=== PATIENT | female | born 1955 | race Caucasian/White ===

== ENCOUNTER 2017-11-17 18:20 | Inpatient (IN) | payer OTHER ==
--- NOTE | 2017-11-17 18:28 | EDPHY ---
H & P Time Seen by Provider: 11/17/17 18:22 HPI/ROS: Chief complaint. Migraine headache, abdominal pain HPI. A 62-year-old female here by EMS with above complaints. Patient tells me that she has daily migraines for many years. Her headache is typical other than maybe worse than usual. No recent head injury or fever. She also has had nausea vomiting for 5 days. Tells me no abdominal pain. She has a colostomy that seems to be working. She yesterday had 5-10 seconds of fluttering in her chest. Then this afternoon 10 min of continuous stabbing type pain that has now resolved. It was not worse with breathing or exertion or position. It occurred while she was lying in bed. She has had a very stressful week and is feeling anxious and increased stress. She feels like she has been short of breath all week as well. ROS Constitutional. no fever/chills, no weakness Eyes. no problems with vision ENT. no sore throat, no nasal drainage Cardiovascular. Chest fluttering and stabbing pain Respiratory. Shortness of breath Abdominal. No abdominal pain but nausea and vomiting . no problems urinating MS. no calf pain/swelling, no neck/back pain, no joint pain Skin. no rash Lymph. no swollen glands Neuro. Typical headache Past Medical/Surgical History: Perforated ulcer, migraines, ovarian surgery, bowel resection, colostomy Social History: , daily smoker, no alcohol Smoking Status: Current some day smoker Physical Exam: General Appearance: Alert, anxious well-developed female mild distress vital signs are stable Eyes: Pupils equal and round no pallor or injection. ENT, Mouth: Mucous membranes are moist. Respiratory: There are no retractions, lungs are clear to auscultation. Cardiovascular: Regular rate and rhythm. Gastrointestinal: Abdomen is soft and nontender, no masses, bowel sounds normal. Neurological: Awake and alert, sensory and motor exams grossly normal. Skin: Warm and dry, no rashes. Musculoskeletal: Neck is supple nontender. Extremities symmetrical, full range of motion. Psychiatric: Patient is oriented X 3, there is no agitation. Constitutional: Initial Vital Signs Temperature (C) 36.6 C 11/17/17 18:23 Heart Rate 88 11/17/17 18:23 Respiratory Rate 18 11/17/17 18:23 Blood Pressure 137/74 H 11/17/17 18:23 O2 Sat (%) 91 L 11/17/17 18:23 O2 Delivery Mode Nasal Cannula O2 (L/minute) 2 Allergies/Adverse Reactions: alendronate sodium [From Fosamax] Allergy (Severe, Verified 06/18/14 03:45) Penicillins Allergy (Verified 06/18/14 03:45) UPSET STOMACH Home Medications: Medication Instructions Recorded Acet/Caffeine/Buta Fioricet 1 tab PO Q6 PRN 08/26/13 [Fioricet (*)] Amitriptyline HCl [Elavil 50 mg 150 mg PO HS 08/26/13 (*)] FLUoxetine [Prozac 20 MG (*)] 1 cap PO DAILY 08/26/13 Prochlorperazine Maleate 2 tab PO DAILY PRN 08/26/13 [Compazine 5mg (*)] Topiramate [Topamax 100MG (*)] 100 mg PO BID 08/26/13 ZOLMItriptan [Zolmitriptan Odt] 5 mg PO BID PRN 08/28/13 Herbals/Supplements -Info Only 1 ea PO DAILY 06/05/14 Nadolol [Corgard] 40 mg PO DAILY 06/05/14 Omeprazole [Prilosec] 40 mg PO BID 06/05/14 Docusate Sodium [Colace 100 MG (*)] 100 mg PO BID #30 cap 06/13/14 Hydrocodone/APAP 5/325 [Industry 2 tab PO Q4 PRN #30 tab 06/13/14 5/325 (*)] Magnesium Hydroxide [Milk of 30 ml PO DAILY PRN #30 ml 06/13/14 Magnesia (*)] Docusate Sodium [Colace 100 MG (*)] 100 mg PO BID #60 cap 06/24/14 Hydrocodone/APAP 5/325 [Industry 2 tab PO Q4 PRN #90 tab 06/24/14 5/325 (*)] Magnesium Hydroxide [Milk of 30 ml PO DAILY #30 ml 06/24/14 Magnesia (*)] Moxifloxacin [Avelox 400 mg (*)] 400 mg PO DAILY #7 tab 06/24/14 Medical Decision Making - Diagnostics EKG Interpretation: EKG interpreted by me shows normal sinus rhythm normal interval and axis. There is left posterior fascicular block and right bundle branch block. No significant ST elevation. No arrhythmia. The rate is 69. Not changed from previous EKGs Imaging Results: Imaging Impressions Abdomen CT 11/17/17 18:59 Impression: 1. Postoperative changes in the pelvis with no evidence for associated abscess. There is mild bowel dilatation noted. 2. See above report for additional findings. Results called and discussed with EMMA DAVIS M.D. on 11/17/2017 at 20:04 Chest X-Ray 11/17/17 18:59 Impression: Negative frontal chest radiograph. CT abdomen and pelvis shows no obvious trauma or bowel obstruction Chest x-ray interpreted by me is normal Procedures: IV normal saline. Zofran for nausea ED Course/Re-evaluation: Patient is found to have significant hypokalemia. Her labs were repeated in the potassium is 2.3. She is given oral IV potassium replacement in the emergency department and 1 g magnesium sulfate She also complains of migraine headache. Reglan is contraindicated with Prozac. She is given IV Toradol and Benadryl for her headache. I consulted and discussed the case with Dr. Garza, hospitalist, who agrees to the admission Differential Diagnosis: I considered small-bowel obstruction, appendicitis, cholecystitis, diverticulitis. I considered acute coronary syndrome. Patient has significant electrolyte abnormality of hypokalemia Patient has an elevated lipase indicating pancreatitis - Data Points Laboratory Results: Laboratory Results 11/17/17 19:40 11/17/17 19:40 11/17/17 11/17/17 11/17/17 19:40 19:40 18:50 WBC 8.58 10^3/uL 10^3/uL REJ (3.80-9.50) RBC 4.82 10^6/uL 10^6/uL REJ (4.18-5.33) Hgb 15.2 g/dL g/dL REJ (12.6-16.3) Hct 42.9 % % REJ (38.0-47.0) MCV 89.0 fL fL REJ (81.5-99.8) MCH 31.5 pg pg REJ (27.9-34.1) MCHC 35.4 g/dL g/dL REJ (32.4-36.7) RDW 11.8 % % REJ (11.5-15.2) Plt Count 199 10^3/uL 10^3/uL REJ (150-400) MPV 8.9 fL fL REJ (8.7-11.7) Neut % (Auto) 68.9 % % REJ (39.3-74.2) Lymph % (Auto) 20.5 % % REJ (15.0-45.0) Jones % (Auto) 9.3 % % REJ (4.5-13.0) Eos % (Auto) 0.6 % % REJ (0.6-7.6) Baso % (Auto) 0.5 % % REJ (0.3-1.7) Nucleat RBC Rel Count 0.0 % % REJ (0.0-0.2) Absolute Neuts (auto) 5.91 10^3/uL 10^3/uL REJ (1.70-6.50) Absolute Lymphs (auto) 1.76 10^3/uL 10^3/uL REJ (1.00-3.00) Absolute Monos (auto) 0.80 10^3/uL 10^3/uL REJ (0.30-0.80) Absolute Eos (auto) 0.05 10^3/uL 10^3/uL REJ (0.03-0.40) Absolute Basos (auto) 0.04 10^3/uL 10^3/uL REJ (0.02-0.10) Absolute Nucleated RBC 0.00 10^3/uL 10^3/uL REJ (0-0.01) Immature Gran % 0.2 % % REJ (0.0-1.1) Immature Gran # 0.02 10^3/uL 10^3/uL REJ (0.00-0.10) Sodium 131 mEq/L L mEq/L (135-145) Potassium 2.3 mEq/L L* mEq/L (3.3-5.0) Chloride 96 mEq/L L mEq/L (97-110) Carbon Dioxide 29 mEq/l mEq/l (22-31) Anion Gap 6 mEq/L L mEq/L (8-16) BUN 31 mg/dL H mg/dL (7-23) Creatinine 0.8 mg/dL mg/dL (0.6-1.0) Estimated GFR > 60 Glucose 101 mg/dL H mg/dL (70-100) Calcium 8.2 mg/dL L mg/dL (8.5-10.4) Troponin I Lipase 11/17/17 18:50 WBC RBC Hgb Hct MCV MCH MCHC RDW Plt Count MPV Neut % (Auto) Lymph % (Auto) Jones % (Auto) Eos % (Auto) Baso % (Auto) Nucleat RBC Rel Count Absolute Neuts (auto) Absolute Lymphs (auto) Absolute Monos (auto) Absolute Eos (auto) Absolute Basos (auto) Absolute Nucleated RBC Immature Gran % Immature Gran # Sodium 132 mEq/L L mEq/L (135-145) Potassium 2.7 mEq/L L* mEq/L (3.3-5.0) Chloride 94 mEq/L L mEq/L (97-110) Carbon Dioxide 28 mEq/l mEq/l (22-31) Anion Gap 10 mEq/L mEq/L (8-16) BUN 29 mg/dL H mg/dL (7-23) Creatinine 0.8 mg/dL mg/dL (0.6-1.0) Estimated GFR > 60 Glucose 117 mg/dL H mg/dL (70-100) Calcium 8.7 mg/dL mg/dL (8.5-10.4) Troponin I < 0.012 ng/mL ng/mL (0.000-0.034) Lipase 680 IU/L H IU/L (23-300) Medications Given: Magnesium Sulfate/Dextrose (Magnesium Sulf 1 Gm (Premix)) 100 mls @ 100 mls/hr IV EDNOW ONE Stop: 11/17/17 21:14 Last Admin: 11/17/17 20:35 Dose: 100 mls Discontinued Medications Diphenhydramine HCl (Benadryl Injection) 12.5 mg IVP EDNOW ONE Stop: 11/17/17 20:18 Last Admin: 11/17/17 20:35 Dose: 12.5 mg Sodium Chloride (Ns) 1,000 mls @ 0 mls/hr IV EDNOW ONE; Wide Open PRN Reason: Protocol Stop: 11/17/17 18:59 Last Admin: 11/17/17 19:18 Dose: 1,000 mls Ketorolac Tromethamine (Toradol) 15 mg IVP EDNOW ONE Stop: 11/17/17 20:18 Last Admin: 11/17/17 20:34 Dose: 15 mg Lorazepam (Ativan) 1 mg PO EDNOW ONE Stop: 11/17/17 19:01 Last Admin: 11/17/17 20:20 Dose: Not Given Lorazepam (Ativan Injection) 0.5 mg IVP EDNOW ONE Stop: 11/17/17 19:20 Last Admin: 11/17/17 19:20 Dose: 0.5 mg Ondansetron HCl (Zofran) 4 mg IVP EDNOW ONE Stop: 11/17/17 18:59 Last Admin: 11/17/17 19:10 Dose: 4 mg Potassium Chloride (Klor Packets) 20 meq PO EDNOW ONE Stop: 11/17/17 20:15 Last Admin: 11/17/17 20:34 Dose: 20 meq Departure - Departure Disposition: [facility] Inpatient Acute Clinical Impression: Hypokalemia Pancreatitis Qualifiers: Chronicity: acute Pancreatitis type: unspecified pancreatitis type Acute pancreatitis complication: unspecified Qualified Code(s): K85.90 - Acute pancreatitis without necrosis or infection, unspecified Condition: Fair Referrals: Patient,NotPresent [Unknown] - As per Instructions
--- NOTE | 2017-11-17 18:40 | CPEKG ---
Heart Rate: 69 RR Interval: 870 P-R Interval: 184 QRSD Interval: 138 QT Interval: 488 QTC Interval: 523 P [place]: 64 QRS [place]: 85 T Wave [place]: 47 EKG Severity - ABNORMAL ECG - EKG Impression: SINUS RHYTHM EKG Impression: RBBB AND LPFB Electronically Signed By: Norman Rachel 17-Nov-2017 18:44:12
[2017-11-17] MEDS ORDERED: ONDANSETRON 4 MG/2 ML VIAL IVP ONE (18:58)
[2017-11-17] MEDS ORDERED: NS 1,000 ML IV ONE (18:58)
[2017-11-17] MEDS ORDERED: LORazepam 1 MG TAB PO ONE (19:00)
[2017-11-17] MEDS ORDERED: LORazepam 2 MG/ML INJ ONE (19:04)
[2017-11-17] MEDS ORDERED: IOPAMIDOL (ISOVUE-300) 100 ML BTL ONE (19:08)
[2017-11-17] MEDS ORDERED: LORazepam 2 MG/ML INJ IVP ONE (19:19)
[2017-11-17 19:49] LABS: PLATELET COUNT 199 10^3/uL (150-400)
[2017-11-17] MEDS ORDERED: POTASSIUM CL 20 MEQ PKT PO ONE (20:14)
[2017-11-17] MEDS ORDERED: MAGNESIUM SULF 1 GM/DEXTROSE 100 ML IV ONE (20:15)
[2017-11-17] MEDS ORDERED: KETOROLAC 30 MG/1 ML SDV IVP ONE (20:17)
[2017-11-17] MEDS ORDERED: ONDANSETRON 4 MG/2 ML VIAL IVP PRN (21:12)
[2017-11-17] MEDS ORDERED: ACETAMINOPHEN 325 MG TAB PO PRN (21:12)
[2017-11-17] MEDS ORDERED: ONDANSETRON DISINTEGRATING 4 MG TAB PO PRN (21:12)
[2017-11-17] MEDS ORDERED: NS W/ 20 KCl/L 1,000 ML IV SCH (21:15)
[2017-11-17] MEDS: POTASSIUM Cl (KCl) 20 MEQ in 1/2 NS 1,000 ML IV SCH ×2 (21:22→22:42)
[2017-11-17] MEDS ORDERED: ZOLMITRIPTAN 5 MG PO PRN (22:18)
[2017-11-17] MEDS ORDERED: TEARS/DEXTRAN 70/HYPROMELLOSE 15 ML OPHT.BTL EACHEYE PRN (22:18)
[2017-11-17] MEDS ORDERED: PROCHLORPERAZINE MALEATE 5 MG TAB PO PRN (22:18)
[2017-11-17] MEDS ORDERED: PROMETHAZINE HCL 25 MG/ML INJ IVP PRN (22:20)
[2017-11-17] MEDS ORDERED: PROTOCOL POTASSIUM 1 DOSE MISC PRN (22:22)
[2017-11-17] MEDS ORDERED: PROTOCOL MAGNESIUM 1 DOSE IV PRN (22:22)
[2017-11-17] MEDS: POTASSIUM Cl (KCl) 100 ML IV SCH ×2 (22:35→23:50)
[2017-11-17] MEDS: HYDROmorphONE/DILAUDID 1 MG/ML INJ IVP PRN (22:36)
--- NOTE | 2017-11-17 22:38 | PDGENHP ---
History and Physical History and Physical: CC: Nausea vomiting and headache HISTORY: This patient comes into the emergency room with a variety of symptoms better difficult to sort out in terms of their relationship and there time line. The major complaint seems to be ongoing headache and persistent vomiting though she does mention that she was worried about some chest pain that could be related to her heart. In terms of the chest pains she describes having onset today of some episodes that were very brief in duration of lasting seconds , a very sharp pain in the left anterior chest wall area. These were notably aggravated by any movement of the trunk or shoulder. There were not associated with any cardiac or pulmonary symptoms otherwise. There is no injury. The symptoms have spontaneously resolved at this time. There has been no coughing, no injury, no fever symptoms. In terms of nausea vomiting she says that around a week and half ago she got a letter from her sister stating that her sister was going to [place] her. This is caused quite a great deal of stress for her and she does not tolerate stress well. She has had ongoing migraine headache for at least 9 or 10 days now, and has been vomiting, having quite a bit of difficulty keeping down any fluids or food. She feels like she has lost some weight. There is some mild orthostatic symptoms. She says she does not have any more abdominal pain than her usual abdominal pain. She does have some chronic abdominal issues related to a history of perforated ulcer and subsequent anastomotic leak and reoperations. She has an colostomy in place and says this has been working just fine. There has been no evidence of bleeding in her emesis or in her ostomy output. Again here she denies any fever. There are no acute neurologic symptoms. She has had trouble keeping down her usual medications which is making it hard for her to keep her symptoms controlled. She has been taking a lot of her Zomig for migraines and has run out of Zomig in the last couple of days. ROS: A comprehensive 10 system review revealed no other significant findings PAST MEDICAL HISTORY: Migraine headaches Chronic abdominal pain, self described irritable bowel syndrome Perforated ulcer after a series of upper GI bleeds, resulting in partial resection with subsequent anastomotic leak leading to a colostomy with a number of surgeries for all of this Appendectomy Endometriosis Focal pancreatic abnormality seen on imaging studies which was followed for question of possible mass but she has never been diagnosed with a cancer, and this appears to have either stabilized or resolved per the patient Bipolar disorder FAMILY MEDICAL HISTORY: No concerning abnormalities relative to the patient's current symptoms that she is aware of SOCIAL HISTORY: Quit smoking around 15 years ago Former alcohol drinker of significance has quit some years ago MEDICATIONS: The patients list has been reconciled by our clinical pharmacist in the EMR. I have reviewed the list and ordered appropriate medicines. PHYSICAL EXAMINATION: Vital Signs: All normal without fever Carbonation Tester: Sinus Examination: General: alert, oriented, good mentation, looks fairly uncomfortable due to headache and is lying on [facility] in position with an ice pack on her forehead Skin: skin turgor is noticeably decreased, otherwise warm, dry, good color, no rash, no jaundice HEENT: normal Neck: no mass or jvd Resps: relaxed Lungs: clear breath sounds Heart: regular, no murmur Abdomen: soft, nondistended, nontender, +BS, no mass; ostomy in left lower quadrant is in good condition and functioning well with normal appearing effluent Upper Extremities: normal Lower Extremities: no edema, warm No Bleeding or bruising Neurologic: normal speech/language, normal hvac designer, no focal weakness IV site: looks normal LABORATORY DATA: Normal CBC Chemistry panel with elevated BUN, and potassium of 2.3 and mild hyponatremia 131 RADIOLOGY STUDIES: CT scan of abdomen done with contrast in the ER tonight. I reviewed the images with Dr. Rd Birch of Radiology. There are extensive postsurgical changes from her multiple prior abdominal surgeries. Her ostomy is present with no noted abnormalities there. Her gallbladder is very hydropic but otherwise unremarkable. There are loops of bowel in the pelvis which are fluid filled and mildly distended but do not appear to indicate any kind of obstruction. No free fluid or free air, no other acute inflammatory changes or concerning findings 12 LEAD EKG: Done in the ER, my personal reading of the tracing: Sinus rhythm with right bundle-branch block and probably left posterior fascicular block. These changes have been noted on previous EKGs as well that I reviewed today ASSESSMENT: -acute hypokalemia and hypomagnesemia from GI losses -intractable nausea vomiting, possibly related to her ongoing migraine but at this time I think her dehydration and electrolyte abnormalities are likely also contributing causes -status migrainosus in a patient with long history of trouble some migraines -chest pains, resolved. These symptoms do not sound at all cardiac and at this time I do not think they warrant any further assessment as they resolved. They may be esophageal symptoms related to her intractable vomiting -acute dehydration due to her vomiting -prior history of multiple abdominal surgeries resulting in a colostomy, with partial gastrectomy with a prior episode of gastric perforation, all seem stable at this time based on symptoms examine CT -bipolar disorder, stable and treatment PLANS: * Inpatient admission to the hospital * Aggressive replacement of her potassium and magnesium at this time * IV hydration * Hopefully the hydration will help her headache and her nausea but will have p.r.n. Orders for nausea and pain medicines in addition to her usual medications at this time * If migraine persists may need to consider prednisone or other measures I have reviewed the patient's case in detail with Dr. Norman Rachel and Rd Birch I have reviewed the patient's past medical records as part of this assessment, including previous hospital admission records, also inpatient and outpatient laboratory data, EKGs
[2017-11-17] MEDS: TOPIRAMATE 100 MG TAB PO SCH (23:05)
--- NOTE | 2017-11-17 23:42 | PDMN ---
Medical Necessity Medical necessity: C/M review: Patient meets INPT criteria under M-370 Vomiting , M-185 Headaches; Acute and persistent - hypokalemia, hypomagnesemia from GI losses, intractable nausea, vomiting, status migrainosus, dehydration, chest pains - resolved, Na 132, 131, K2.7, 2.3, BUN 29, 31, mag 3.3, Ca 8.2, lipase 680 requiring aggressive IV Potassium and magnesium repletion, ongoing IV KCl 20 meq in NS infusion 125 ml/hr., frequeint doses IV Dilaudid, IV Phenergan, IV Zofran, electrolyte monitoring, comorbid history of multiple abdominal surgeries including colostomy, with partial gastrectomy with a prior gastric perforation, bipolar disorder, migraine headaches, chronic abdominal pain, self described irritable syndrome. MD anticipates > 2 MN LOS for ongoing med nec fro eval and TX of above.
[2017-11-18] MEDS: HYDROmorphONE/DILAUDID 1 MG/ML INJ IVP PRN ×3 (00:32→16:10)
[2017-11-18] MEDS: ZOLPIDEM TARTRATE 5 MG TAB PO PRN (01:11)
[2017-11-18] MEDS ORDERED: LORazepam 2 MG/ML INJ IVP PRN (04:26)
[2017-11-18] MEDS: ACET/CAFFEINE/BUTA FIORICET 1 EACH TAB PO PRN ×2 (05:36→20:33)
[2017-11-18] MEDS ORDERED: POTASSIUM CL 10 MEQ TAB PO ONE (07:57)
[2017-11-18] MEDS: GABAPENTIN 400 MG CAP PO SCH (08:40)
[2017-11-18] MEDS: TOPIRAMATE 100 MG TAB PO SCH ×2 (08:44→20:33)
[2017-11-18] MEDS: FLUoxetine 20 MG CAP PO SCH (08:44)
[2017-11-18] MEDS ORDERED: PANTOPRAZOLE SODIUM 40 MG VIAL IVP ONE (08:57)
[2017-11-18] MEDS ORDERED: NADOLOL 40 MG PO SCH (09:00)
[2017-11-18] MEDS: ENOXAPARIN 40 MG/0.4 ML SYR SC SCH (10:55)
[2017-11-18] MEDS: NADOLOL 20 MG TAB PO SCH (11:01)
--- NOTE | 2017-11-18 14:07 | ASMTCMCOM ---
CM Note CM Note Notes: Patient admitted via ED with c/o headache and multiple days of nausea and vomiting She has been diagnosed with pancreatitis. She is now on clear liquids. She will be changed to Med Surg status. Needs to be determined. CM to follow. Plan:TBD Date Signed: 11/18/2017 02:06 PM Electronically Signed By:Christen Taylor RN
--- NOTE | 2017-11-18 14:44 | HOSPPROG ---
Hospitalist Progress Note Assessment/Plan: -acute hypokalemia and hypomagnesemia from GI losses -intractable nausea vomiting, possibly related to her ongoing migraine but at this time I think her dehydration and electrolyte abnormalities are likely also contributing causes -status migrainosus in a patient with long history of trouble some migraines -chest pains, resolved. These symptoms do not sound at all cardiac and at this time I do not think they warrant any further assessment as they resolved. They may be esophageal symptoms related to her intractable vomiting -acute dehydration due to her vomiting -prior history of multiple abdominal surgeries resulting in a colostomy, with partial gastrectomy with a prior episode of gastric perforation, all seem stable at this time based on symptoms examine CT -bipolar disorder, stable and treatment PLANS: -schedule IV PPI -IV low dose Solu-Medrol -transfer out of the PCU -replace K -cont IV Hydration -change to inpatient -Lovenox for DVT proph Subjective: still with nause. minimal oral intake. +CHAMBERS Objective: Vital Signs Temp Pulse Resp BP Pulse Ox 36.5 C 86 16 115/62 97 11/18/17 07:43 11/18/17 07:43 11/18/17 07:43 11/18/17 07:43 11/18/17 07:43 Laboratory Results 11/18/17 03:42 11/17/17 11/18/17 11/19/17 05:59 05:59 05:59 Intake Total 1600 Balance 1600 - Physical Exam Constitutional: no apparent distress, not in pain Eyes: PERRL, EOMI Ears, Nose, Mouth, Throat: moist mucous membranes, hearing normal Cardiovascular: regular rate and rhythym, No edema Respiratory: no respiratory distress, no rales or rhonchi, clear to auscultation Gastrointestinal: normoactive bowel sounds, No tenderness Skin: warm Musculoskeletal: full muscle strength Neurologic: AAOx3 Psychiatric: interacting appropriately, not anxious, not encephalopathic Lymph, Heme, Immunologic: No petechiae ICD10 Worksheet Patient Problems: Problems Problem Status Onset Hypokalemia Acute Pancreatitis Acute Rectal bleeding Acute
[2017-11-18] MEDS: methylPREDNISolone SOD SUCC 40 MG/ML VIAL IVP SCH (15:55)
[2017-11-18] MEDS: PANTOPRAZOLE SODIUM 40 MG VIAL IVP SCH (20:33)
[2017-11-19] MEDS: HYDROmorphONE/DILAUDID 1 MG/ML INJ IVP PRN ×2 (01:22→08:44)
[2017-11-19 04:33] LABS: PLATELET COUNT 178 10^3/uL (150-400)
[2017-11-19] MEDS ORDERED: POTASSIUM CL 20 MEQ TAB PO ONE (07:18)
[2017-11-19] MEDS: ACET/CAFFEINE/BUTA FIORICET 1 EACH TAB PO PRN ×2 (09:30→18:15)
[2017-11-19] MEDS: methylPREDNISolone SOD SUCC 40 MG/ML VIAL IVP SCH (09:41)
[2017-11-19] MEDS: PANTOPRAZOLE SODIUM 40 MG VIAL IVP SCH ×2 (09:44→22:59)
[2017-11-19] MEDS: GABAPENTIN 400 MG CAP PO SCH (09:45)
[2017-11-19] MEDS: ENOXAPARIN 40 MG/0.4 ML SYR SC SCH (09:45)
[2017-11-19] MEDS: FLUoxetine 20 MG CAP PO SCH (09:45)
[2017-11-19] MEDS: TOPIRAMATE 100 MG TAB PO SCH ×2 (09:45→22:58)
[2017-11-19] MEDS: NADOLOL 20 MG TAB PO SCH (09:53)
--- NOTE | 2017-11-19 15:21 | ASMTCMCOM ---
CM Note CM Note Notes: Reviewed pt in rounds and met w/her. She lives at home w/her 28 year old daughter. She is feeling better, has hx of colostomy that she manages. Pt will likely be independant. RN stated that pt has hx of PTSD and anxiety and asked if Bridgette Mock could see. CM left voice mail for Bridgette Mock. CM will follow. Date Signed: 11/19/2017 03:20 PM Electronically Signed By:Amrita Otero RN
--- NOTE | 2017-11-19 17:59 | HOSPPROG ---
Hospitalist Progress Note Assessment/Plan: DIAGNOSES: # acute hypokalemia and hypomagnesemia from GI losses # intractable nausea vomiting, possibly related to her ongoing migraine but at this time I think her dehydration and electrolyte abnormalities are likely also contributing causes # status migrainosus in a patient with long history of trouble some migraines * Some improvement in symptoms with management of dehydration electrolytes etc #chest pains, resolved * Not cardiac. * Suspect these may be esophageal or peptic, and seem to be responding to PPI # acute dehydration due to her vomiting # prior history of multiple abdominal surgeries resulting in a colostomy, with partial gastrectomy with a prior episode of gastric perforation, all seem stable at this time based on symptoms examine CT PLANS: * Continue trial of oral fluids slowly overnight, consider possibly home tomorrow if doing well with that * Continue antiemetics as needed * Will begin to wean from the current pain medicines Seen on multidisciplinary rounds today as well as hospitalist rounds SUBJECTIVE: Overall feeling fair bit better though still being bothered by headaches, nausea , and weakness. However today she was able to go for quite well without any nausea medicines and has now eat some very small amounts of solid food today. 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[employer], my review: Sinus Exam: alert oriented skin warm dry color ok resps not labored lungs clear BSs heart regular abd soft nondistended nontender, bowel sounds present limbs warm, no edema iv site ok Laboratory data: Continued improvement today and potassium, magnesium, BUN, lipase level Objective: Vital Signs Temp Pulse Resp BP Pulse Ox 36.7 C 53 L 16 96/49 L 94 11/19/17 17:00 11/19/17 17:00 11/19/17 17:00 11/19/17 17:00 11/19/17 17:00 Laboratory Results 11/19/17 03:25 11/19/17 03:25 11/18/17 11/19/17 11/20/17 06:59 06:59 06:59 Intake Total 4284 176 9472 Output Total 150 Balance 7132 [id number] ICD10 Worksheet Patient Problems: Problems Problem Status Onset Hypokalemia Acute Pancreatitis Acute Rectal bleeding Acute
[2017-11-19] MEDS: oxyCODONE IR 5 MG TAB PO PRN (18:17)
[2017-11-19] MEDS: traMADol 50 MG TAB PO SCH (22:58)
[2017-11-19] MEDS: DOCUSATE SODIUM 100 MG CAP PO SCH (23:00)
[2017-11-20] MEDS: oxyCODONE IR 5 MG TAB PO PRN ×2 (00:46→08:56)
[2017-11-20] MEDS: ZOLPIDEM TARTRATE 5 MG TAB PO PRN (00:47)
[2017-11-20] MEDS: ACET/CAFFEINE/BUTA FIORICET 1 EACH TAB PO PRN ×3 (00:49→14:58)
[2017-11-20] MEDS: traMADol 50 MG TAB PO SCH ×2 (06:28→13:53)
[2017-11-20 07:44] VITALS: BP 108/61
[2017-11-20] MEDS: GABAPENTIN 400 MG CAP PO SCH (08:55)
[2017-11-20] MEDS: methylPREDNISolone SOD SUCC 40 MG/ML VIAL IVP SCH (08:55)
[2017-11-20] MEDS: PANTOPRAZOLE SODIUM 40 MG VIAL IVP SCH (08:55)
[2017-11-20] MEDS: TOPIRAMATE 100 MG TAB PO SCH (08:56)
[2017-11-20] MEDS: DOCUSATE SODIUM 100 MG CAP PO SCH (08:56)
[2017-11-20] MEDS: NADOLOL 20 MG TAB PO SCH (08:56)
[2017-11-20] MEDS: FLUoxetine 20 MG CAP PO SCH (08:56)
[2017-11-20] MEDS: ENOXAPARIN 40 MG/0.4 ML SYR SC SCH (08:56)
--- NOTE | 2017-11-20 10:44 | PDDCSUM ---
Discharge Summary Discharge Summary: DISCHARGE DIAGNOSES: -acute dehydration due to nausea vomiting -acute hypokalemia due to nausea vomiting -ongoing migraine headache with status migrainosus -hypermagnesemia due to dehydration and ongoing use of magnesium supplements -chronic dyspepsia, poorly controlled with Nexium at this time PROCEDURES: CT scan of abdomen was ordered in the ER, showing primarily postoperative changes from multiple previous abdominal surgeries HOSPITAL COURSE SUMMARY: This patient who has chronic severe migraine syndrome and often has very prolonged migraines with bed nausea, had about a week and half of ongoing migraine headache which is poorly controlled and had severe nausea vomiting. As she arrived here she complains primarily of feeling weak and tired with uncontrolled nausea vomiting unable to keep in food or fluid. She also complained of poor control of her chronic dyspepsia. It was unclear if that was because she was not keeping her Nexium in or if the Nexium was being ineffective. She was found have a potassium of 2.3 and was mildly hypomagnesemic, with a history of taking regular magnesium supplements. She was treated with IV hydration, IV potassium replacement, corticosteroid, IV Protonix, and nausea medicines along with some intermittent pain medicine use for the headache. Overall her recovery was a little slower than anticipated but she has recovered now to very good resolution of her nausea vomiting, her headache, her weakness, and her dyspepsia. At this point she is eating solid food well, up ambulating the hallway and looks very comfortable. Vital signs have remained normal throughout her hospital stay. She does not have any jaundice, her abdominal exam today is normal, her respirations look normal. PENDING TEST RESULTS: None MEDICATION CHANGES: Addition of p.r.n. Zofran for use with her nausea with the migraines She is given 10 tablets each of Fioricet and tramadol to use for headache pain as she is currently out of her Zomig and waiting for her mail-order delivery of the next package of that medicine. She would like to try using Protonix instead of Nexium so I have prescribed Protonix. FOLLOW-UP PLAN: She plans to contact her primary care physician to make an appointment to be seen in the next 7-8 days. Greater than 35 minutes bedside and care coordination time today
--- NOTE | 2017-11-20 11:07 | ASDISCHSUM ---
Discharge Information Plan Status:Home with No Needs Medically Cleared to Leave:11/20/2017 Discharge Date:11/20/2017 CM D/C Disposition:Home, Routine, Self-Care ADT D/C Disposition:Home, Routine, Self-Care Projected Discharge Date:11/20/2017 Transportation at D/C: Discharge Delay Reason: Follow-Up Date:11/20/2017 Discharge Slot: Final Diagnosis: Placement Information Patient Contact Information Contact Name:DANITZA Relationship:Daughter Address:[address] City:[place] Alternate Phone: State/Zip Code:[place] [address] Email: Financial Information Financial Class:[employer] Primary [facility] Desc[facility] Primary Plan Number:[id number] Secondary Plan Desc: Secondary Plan Number: Assessment Information LACE LACE Length of stay for Answers: 2 days current admission Acuity / Level of Answers: Yes Care: Did the patient have an inpatient admission? Comorbidities - select Answers: Other Notes: hypokalemia, hypomagnes alex all that apply a, h/o migraines, chest pain, acute dehydration # of Emergency department Answers: 1-2 visits in the last 6 months Score: 7 Date Signed: 11/20/2017 11:04 AM Electronically Signed By:Rhiannon Crocker RN [facility] CM Progress Note CM Note CM Note Notes: Patient admitted via ED with c/o headache and multiple days of nausea and vomiting She has been diagnosed with pancreatitis. She is now on clear liquids. She will be changed to Med Surg status. Needs to be determined. CM to follow. Plan:TBD Date Signed: 11/18/2017 02:06 PM Electronically Signed By:Christen Taylor RN [facility] CM Progress Note CM Note CM Note Notes: Reviewed pt in rounds and met w/her. She lives at home w/her 28 year old daughter. She is feeling better, has hx of colostomy that she manages. Pt will likely be independant. RN stated that pt has hx of PTSD and anxiety and asked if Bridgette Mock could see. CM left voice mail for Bridgette Mock. CM will follow. Date Signed: 11/19/2017 03:20 PM Electronically Signed By:Amrita Otero RN Case Management Discharge Plan Note Case Management Discharge Discharge Order Complete? Answers: Yes Patient to Obtain Answers: via Family Medications Discharge Comments Notes: 11/20/2017 Case Management Note Pt had consult with Rehan Mock today. Pt to discharge independent. Date Signed: 11/20/2017 11:06 AM Electronically Signed By:Rhiannon Crocker RN Intervention Information
== END 2017-11-20 16:01 | disposition home or self-care (01) | DRG 641 ==
LOC: EDUNIT# → F2W 21:49
PROVIDERS: ADMIT Internal Medicine; ATTEND Internal Medicine
DX: E87.6 Hypokalemia (principal); E86.0 Dehydration; E83.41 Hypermagnesemia; R10.13 Epigastric pain; G43.911 Migraine, unspecified, intractable, with status migrainosus
CPT/HCPCS: 96365; J1170; J1200; J1650; J1885; J2060; J2405; J2550; J2920; J3475; J3480; Q9967

== ENCOUNTER 2017-12-01 12:44 | Emergency (ER) | payer OTHER ==
--- NOTE | 2017-12-01 13:03 | EDPHY ---
H & P Time Seen by Provider: 12/01/17 12:59 HPI/ROS: Chief complaint. Swollen leg HPI. 62-year-old female was hospitalized about 10 days ago for dehydration and electrolyte abnormalities. She now has left leg and foot swelling for 1 week. Better with elevation. Increased swelling when she is ambulating. No pain to the leg. No symptoms above the knee. Symptoms are really related to the anterior oh and foot. Right leg is normal. No chest discomfort or trouble breathing. Specifically no shortness of breath or pain with breathing. No trauma or unusual activity ROS Constitutional. no fever/chills, no weakness Eyes. no problems with vision ENT. no sore throat, no nasal drainage Cardiovascular. no chest pain Respiratory. no shortness of breath, no cough Abdominal. no abdominal pain, no nausea/vomiting, no diarrhea . no problems urinating MS. Swelling left oh and foot Skin. no rash Lymph. no swollen glands Neuro. no headache, no dizziness, no difficulty walking or with speech Past Medical/Surgical History: Perforated ulcer, migraines, appendectomy, bowel resection with colostomy Social History: Single, daily smoker, no alcohol Smoking Status: Current some day smoker Physical Exam: General Appearance: Alert well-developed female mild distress vital signs are stable Eyes: Pupils equal and round no pallor or injection. ENT, Mouth: Mucous membranes are moist. Respiratory: There are no retractions, lungs are clear to auscultation. Cardiovascular: Regular rate and rhythm. Gastrointestinal: Abdomen is soft and nontender, no masses, bowel sounds normal. Neurological: Awake and alert, sensory and motor exams grossly normal. Skin: Warm and dry, no rashes. Musculoskeletal: Neck is supple nontender. Extremities left anterior oh and dorsum of foot are swollen. No calf tenderness. No thigh tenderness. Psychiatric: Patient is oriented X 3, there is no agitation. Constitutional: Initial Vital Signs Temperature (C) 36.8 C 12/01/17 12:50 Heart Rate 68 12/01/17 12:50 Respiratory Rate 16 12/01/17 12:50 Blood Pressure 105/61 12/01/17 12:50 O2 Sat (%) 94 12/01/17 12:50 Allergies/Adverse Reactions: alendronate sodium [From Fosamax] Allergy (Severe, Verified 12/01/17 12:49) Penicillins Allergy (Verified 12/01/17 12:49) UPSET STOMACH Home Medications: Medication Instructions Recorded FLUoxetine [Prozac 20 MG (*)] 1 cap PO DAILY 08/26/13 Topiramate [Topamax 100MG (*)] 100 mg PO BID 08/26/13 ZOLMItriptan [Zolmitriptan Odt] 5 mg PO BID PRN 08/28/13 Herbals/Supplements -Info Only 1 ea PO DAILY 06/05/14 Nadolol [Corgard] 40 mg PO DAILY 06/05/14 Docusate Sodium [Colace 100 MG (*)] 100 mg PO BID #30 cap 06/13/14 Calcium Carbonate [Tums 500MG (*)] 500 - 1,500 mg PO QID PRN 11/17/17 Gabapentin [Neurontin 400 MG (*)] 1,600 mg PO DAILY 11/17/17 Multivitamins [Multivitamin (*)] 1 each PO DAILY 11/17/17 Tears/Dextran 70/Hypromellose 1 drop EACHEYE Q2HRS PRN 11/17/17 [Natural Balance Tears (*)] Acet/Caffeine/Buta Fioricet 1 tab PO Q6 PRN #10 tab 11/20/17 [Fioricet (*)] Ondansetron Odt [Zofran Odt 4 mg 4 mg PO Q4HRS PRN #20 tab 11/20/17 (*)] Pantoprazole Sodium [Protonix IV 40 mg IVP BID #30 vial 11/20/17 (*)] traMADol [Ultram 50 mg (*)] 50 mg PO Q6HRS #12 tab 11/20/17 Medical Decision Making - Diagnostics Imaging Results: Imaging Impressions Extremity Venous Study 12/01/17 13:23 Impression: No evidence of deep vein thrombosis. Findings discussed with EMMA DAVIS 12/01/2017 at 14:13. Ultrasound of the left lower extremity reviewed by me and discussed with Dr. Ballard is negative for DVT ED Course/Re-evaluation: Re-evaluation at 2:45 p.m.. Patient is stable. The patient and I discussed imaging and lab results. We discussed treatment plan including criteria for return importance of follow-up and further evaluation. She expresses understanding and agreement Differential Diagnosis: I considered DVT, CHF. This may be residual fluid from her recent hospitalization dehydration with IV fluids. No evidence for DVT or cellulitis or infection. Patient had also had electrolyte issues and I considered hyponatremia and hypokalemia as well. - Data Points Laboratory Results: Laboratory Results 12/01/17 14:10 12/01/17 14:10 12/01/17 12/01/17 14:10 14:10 WBC 6.62 10^3/uL 10^3/uL (3.80-9.50) RBC 4.22 10^6/uL 10^6/uL (4.18-5.33) Hgb 13.3 g/dL g/dL (12.6-16.3) Hct 39.9 % % (38.0-47.0) MCV 94.5 fL fL (81.5-99.8) MCH 31.5 pg pg (27.9-34.1) MCHC 33.3 g/dL g/dL (32.4-36.7) RDW 13.1 % % (11.5-15.2) Plt Count 263 10^3/uL 10^3/uL (150-400) MPV 8.3 fL L fL (8.7-11.7) Neut % (Auto) 52.5 % % (39.3-74.2) Lymph % (Auto) 35.0 % % (15.0-45.0) [place] % (Auto) 8.6 % % (4.5-13.0) Eos % (Auto) 3.0 % % (0.6-7.6) Baso % (Auto) 0.6 % % (0.3-1.7) Nucleat RBC Rel Count 0.0 % % (0.0-0.2) Absolute Neuts (auto) 3.47 10^3/uL 10^3/uL (1.70-6.50) Absolute Lymphs (auto) 2.32 10^3/uL 10^3/uL (1.00-3.00) Absolute Monos (auto) 0.57 10^3/uL 10^3/uL (0.30-0.80) Absolute Eos (auto) 0.20 10^3/uL 10^3/uL (0.03-0.40) Absolute Basos (auto) 0.04 10^3/uL 10^3/uL (0.02-0.10) Absolute Nucleated RBC 0.00 10^3/uL 10^3/uL (0-0.01) Immature Gran % 0.3 % % (0.0-1.1) Immature Gran # 0.02 10^3/uL 10^3/uL (0.00-0.10) Sodium 140 mEq/L mEq/L (135-145) Potassium 4.0 mEq/L mEq/L (3.3-5.0) Chloride 112 mEq/L H mEq/L (97-110) Carbon Dioxide 18 mEq/l L mEq/l (22-31) Anion Gap 10 mEq/L mEq/L (8-16) BUN 20 mg/dL mg/dL (7-23) Creatinine 0.9 mg/dL mg/dL (0.6-1.0) Estimated GFR > 60 Glucose 104 mg/dL H mg/dL (70-100) Calcium 9.4 mg/dL mg/dL (8.5-10.4) NT-Pro-B Natriuret Pep 42 pg/mL pg/mL (0-125) Departure - Departure Disposition: Home, Routine, Self-Care Clinical Impression: Left leg swelling Condition: Good Instructions: Leg Edema (ED) Additional Instructions: Activity as tolerated. Keep leg elevated as much as possible. Return for worsening swelling or pain or chest discomfort or trouble breathing. Recheck in 2-3 days if the leg continues to be swollen Referrals: Emma Littlejohn MD [Primary Care Provider] - 2-3 days, if not improved
[2017-12-01 14:19] LABS: PLATELET COUNT 263 10^3/uL (150-400)
[2017-12-01 15:02] VITALS: BP 111/70
== END 2017-12-01 15:03 | disposition home or self-care (01) ==
DX: M79.89 Other specified soft tissue disorders (principal); F17.200 Nicotine dependence, unspecified, uncomplicated

== ENCOUNTER 2017-12-22 06:59 | Emergency (ER) | payer OTHER ==
[2017-12-22] MEDS ORDERED: METOCLOPRAMIDE 10 MG/2 ML VIAL IVP ONE (07:29)
[2017-12-22] MEDS ORDERED: NS 1,000 ML IV ONE (07:29)
[2017-12-22] MEDS ORDERED: DEXAMETHASONE 10 MG/ML VIAL IVP ONE (07:29)
[2017-12-22] MEDS ORDERED: KETOROLAC 30 MG/1 ML SDV IVP ONE (07:29)
--- NOTE | 2017-12-22 07:36 | EDPHY ---
H & P Stated Complaint: nausea and stones in colostomy starting yesterday Time Seen by Provider: 12/22/17 07:21 HPI/ROS: CHIEF COMPLAINT: Migraine headache and anxiety and stool pellet HISTORY OF PRESENT ILLNESS: Patient is a 62-year-old female has a history of migraines as well as a colostomy. She states that she has had a lot of stress recently and that causes her migraines. It is when she has migraines she begins to vomit and this will often cause dehydration and electrolyte abnormalities. She was admitted for this in October. She reports that she has had several firm stool pellets, out of her ostomy in the last day because she has been somewhat dehydrated. She has been drinking milk and states that is all she can keep down. She has been taking her stool softener. No fever. No vomiting with this current episode. She is requesting an anti anxiety medication to take at home. REVIEW OF SYSTEMS: Constitutional: denies: chills, fever, recent illness, recent injury EENTM: denies: blurred vision, double vision, nose congestion Respiratory: denies: cough, shortness of breath Cardiac: denies: chest pain, irregular heart rate, lightheadedness, palpitations Gastrointestinal/Abdominal: See HPI, denies pain Genitourinary: denies: dysuria, frequency, hematuria, pain Musculoskeletal: denies: joint pain, muscle pain Skin: denies: lesions, rash, jaundice, bruising Neurological: denies: headache, numbness, paresthesia, tingling, dizziness, weakness Hematologic/Lymphatic: denies: blood clots, easy bleeding, easy bruising Immunologic/allergic: denies: HIV/AIDS, transplant EXAM: GENERAL: Well-appearing, well-nourished and in no acute distress. HEAD: Atraumatic, normocephalic. EYES: Pupils equal round and reactive to light, extraocular movements intact, sclera anicteric, conjunctiva are normal. ENT: TMs normal, nares patent, oropharynx clear without exudates. Moist mucous membranes. NECK: Normal range of motion, supple without lymphadenopathy or JVD. LUNGS: Breath sounds clear to auscultation bilaterally and equal. No wheezes rales or rhonchi. HEART: Regular rate and rhythm without murmurs, rubs or gallops. ABDOMEN: Ostomy in place left lower quadrant, whitish liquidy stool with several small pellets of stool that are soft and easily compressible. No bleeding. No erythema. BACK: No CVA tenderness, no spinal tenderness, step-offs or deformities EXTREMITIES: Normal range of motion, no pitting or edema. No clubbing or cyanosis. NEUROLOGICAL: Cranial nerves II through XII grossly intact. Normal speech, normal gait. 5/5 strength, normal movement in all extremities, normal sensation PSYCH: Normal mood, normal affect. SKIN: Warm, dry, normal turgor, no visible rashes or lesions. Source: Patient, Family Exam Limitations: No limitations - Medical/Surgical History Hx Asthma: No Hx Chronic Respiratory Disease: No Hx Diabetes: No Hx Cardiac Disease: No Hx Renal Disease: No Hx Cirrhosis: No Hx Alcoholism: No Hx HIV/AIDS: No Hx Splenectomy or Spleen Trauma: No Other PMH: PERFORATED ULCER, MIGRAINES, APPY, OVARY SUGERY. BOWEL RESECTION . COLOSTOMY - Family History Significant Family History: No pertinent family hx - Social History Smoking Status: Current some day smoker Alcohol Use: None Constitutional: Initial Vital Signs Temperature (C) 37 C 12/22/17 07:02 Heart Rate 79 12/22/17 07:02 Respiratory Rate 18 12/22/17 07:02 Blood Pressure 105/73 12/22/17 07:02 O2 Sat (%) 96 12/22/17 07:02 O2 Delivery Mode Room Air Allergies/Adverse Reactions: alendronate sodium [From Fosamax] Allergy (Severe, Verified 12/22/17 07:01) Penicillins Allergy (Verified 12/22/17 07:01) UPSET STOMACH Home Medications: Medication Instructions Recorded FLUoxetine [Prozac 20 MG (*)] 1 cap PO DAILY 08/26/13 Topiramate [Topamax 100MG (*)] 100 mg PO BID 08/26/13 ZOLMItriptan [Zolmitriptan Odt] 5 mg PO BID PRN 08/28/13 Herbals/Supplements -Info Only 1 ea PO DAILY 06/05/14 Nadolol [Corgard] 40 mg PO DAILY 06/05/14 Docusate Sodium [Colace 100 MG (*)] 100 mg PO BID #30 cap 06/13/14 Calcium Carbonate [Tums 500MG (*)] 500 - 1,500 mg PO QID PRN 11/17/17 Gabapentin [Neurontin 400 MG (*)] 1,600 mg PO DAILY 11/17/17 Multivitamins [Multivitamin (*)] 1 each PO DAILY 11/17/17 Tears/Dextran 70/Hypromellose 1 drop EACHEYE Q2HRS PRN 11/17/17 [Natural Balance Tears (*)] Acet/Caffeine/Buta Fioricet 1 tab PO Q6 PRN #10 tab 11/20/17 [Fioricet (*)] Ondansetron Odt [Zofran Odt 4 mg 4 mg PO Q4HRS PRN #20 tab 11/20/17 (*)] Pantoprazole Sodium [Protonix IV 40 mg IVP BID #30 vial 11/20/17 (*)] traMADol [Ultram 50 mg (*)] 50 mg PO Q6HRS #12 tab 11/20/17 LORazepam [Ativan 1 mg (RX)] 1 mg PO Q6-8PRN PRN #10 tab 12/22/17 Medical Decision Making ED Course/Re-evaluation: 9:30 a.m. the patient states she still is a mild headache and nausea. She is requesting different medications. We discussed her lab work is reassuring. 10:30 a.m. the patient is feeling better after Haldol. She is requesting to go home and wants a prescription for anti anxiety medicine. I will give her a short prescription of Ativan to take p.r.n.. She declines further workup or testing. Differential Diagnosis: Partial list of the Differential diagnosis considered include but were not limited to; migraine, anxiety, gastritis, malnutrition and although unlikely based on the history and physical exam, I also considered infection, obstruction , ischemia, volvulus, perforation. I discussed these differential diagnoses and the plan with the patient as well as the usual and expected course. The patient understands that the diagnosis is provisional and that in medicine we are not always correct and that further workup is often warranted. Usual and customary warnings were given. All of the patient's questions were answered. The patient was instructed to return to the emergency department should the symptoms at all worsen or return, otherwise to followup with the physician as we discussed. - Data Points Laboratory Results: Laboratory Results 12/22/17 07:20 12/22/17 08:05 06/12/22/17 12/22/17 08:05 07:20 07:20 WBC 10.55 10^3/uL H 10^3/uL (3.80-9.50) RBC 5.01 10^6/uL 10^6/uL (4.18-5.33) Hgb 15.7 g/dL g/dL (12.6-16.3) Hct 47.4 % H % (38.0-47.0) MCV 94.6 fL fL (81.5-99.8) MCH 31.3 pg pg (27.9-34.1) MCHC 33.1 g/dL g/dL (32.4-36.7) RDW 13.2 % % (11.5-15.2) Plt Count 210 10^3/uL 10^3/uL (150-400) MPV 9.8 fL fL (8.7-11.7) Neut % (Auto) 74.4 % H % (39.3-74.2) Lymph % (Auto) 17.0 % % (15.0-45.0) [place] % (Auto) 5.5 % % (4.5-13.0) Eos % (Auto) 2.4 % % (0.6-7.6) Baso % (Auto) 0.4 % % (0.3-1.7) Nucleat RBC Rel Count 0.0 % % (0.0-0.2) Absolute Neuts (auto) 7.86 10^3/uL H 10^3/uL (1.70-6.50) Absolute Lymphs (auto) 1.79 10^3/uL 10^3/uL (1.00-3.00) Absolute Monos (auto) 0.58 10^3/uL 10^3/uL (0.30-0.80) Absolute Eos (auto) 0.25 10^3/uL 10^3/uL (0.03-0.40) Absolute Basos (auto) 0.04 10^3/uL 10^3/uL (0.02-0.10) Absolute Nucleated RBC 0.00 10^3/uL 10^3/uL (0-0.01) Immature Gran % 0.3 % % (0.0-1.1) Immature Gran # 0.03 10^3/uL 10^3/uL (0.00-0.10) Sodium 136 mEq/L mEq/L REJ (135-145) Potassium 4.4 mEq/L mEq/L TNP (3.3-5.0) Chloride 109 mEq/L mEq/L TNP (97-110) Carbon Dioxide 23 mEq/l mEq/l TNP (22-31) Anion Gap 4 mEq/L L mEq/L TNP (8-16) BUN 21 mg/dL mg/dL TNP (7-23) Creatinine 0.8 mg/dL mg/dL TNP (0.6-1.0) Estimated GFR > 60 TNP Glucose 97 mg/dL mg/dL TNP (70-100) Calcium 9.7 mg/dL mg/dL TNP (8.5-10.4) Medications Given: Discontinued Medications Dexamethasone (Decadron Injection) 10 mg IVP EDNOW ONE Stop: 12/22/17 07:30 Last Admin: 12/22/17 07:44 Dose: 10 mg Docusate Sodium (Colace) 100 mg PO EDNOW ONE Stop: 12/22/17 09:27 Last Admin: 12/22/17 09:31 Dose: 100 mg Haloperidol Lactate (Haldol Injection) 2.5 mg IVP EDNOW ONE Stop: 12/22/17 09:27 Last Admin: 12/22/17 09:31 Dose: 2.5 mg Sodium Chloride (Ns) 1,000 mls @ 0 mls/hr IV ONCE ONE; Wide Open PRN Reason: Protocol Stop: 12/22/17 07:30 Last Admin: 12/22/17 07:43 Dose: 1,000 mls Ketorolac Tromethamine (Toradol) 15 mg IVP EDNOW ONE Stop: 12/22/17 07:30 Last Admin: 12/22/17 07:44 Dose: 15 mg Metoclopramide HCl (Reglan Injection) 10 mg IVP EDNOW ONE Stop: 12/22/17 07:30 Last Admin: 12/22/17 07:44 Dose: 10 mg Departure - Departure Disposition: Home, Routine, Self-Care Clinical Impression: Anxiety Migraine headache Qualifiers: Migraine type: other Status migrainosus presence: without status migrainosus Intractability: not intractable Qualified Code(s): G43.809 - Other migraine, not intractable, without status migrainosus Nausea & vomiting Qualifiers: Vomiting type: unspecified Vomiting Intractability: non-intractable Qualified Code(s): R11.2 - Nausea with vomiting, unspecified Condition: Fair Instructions: Lorazepam (By mouth), Migraine Headache (ED), Anxiety (ED) Referrals: Norman Littlejohn MD [Primary Care Provider] - As per Instructions Prescriptions: LORazepam [Ativan 1 mg (RX)] 1 mg PO Q6-8PRN PRN #10 tab PRN Reason: *Anxiety/Agitation/Insomnia
[2017-12-22 07:47] LABS: PLATELET COUNT 210 10^3/uL (150-400)
[2017-12-22] MEDS ORDERED: HALOPERIDOL LACT 5 MG/ML INJ IVP ONE (09:26)
[2017-12-22] MEDS ORDERED: DOCUSATE SODIUM 100 MG CAP PO ONE (09:26)
[2017-12-22 11:01] VITALS: BP 124/74
== END 2017-12-22 11:01 | disposition home or self-care (01) ==
DX: G43.809 Other migraine, not intractable, without status migrainosus (principal); F41.9 Anxiety disorder, unspecified; R11.2 Nausea with vomiting, unspecified; E86.9 Volume depletion, unspecified; F17.200 Nicotine dependence, unspecified, uncomplicated
CPT/HCPCS: 96374; J1100; J1630; J1885; J2765